=== PATIENT | male | born 1995 | race Caucasian/White ===

== ENCOUNTER 2022-03-16 00:43 | Emergency (ER) | payer OTHER ==
[2022-03-16 00:50] VITALS: BP 151/100; PULSE 92; RESP 18; TEMP 97.7; BMI 52.2
== END 2022-03-16 01:04 | disposition home or self-care (01) ==
LOC: FER 00:43
DX: S09.92XA Unspecified injury of nose, initial encounter (principal); W01.0XXA Fall on same level from slipping, tripping and stumbling without subsequent striking against object, initial encounter
CPT/HCPCS: 99281-25

== ENCOUNTER 2022-08-27 16:19 | Emergency (ER) | payer OTHER ==
[2022-08-27 16:34] VITALS: BP 130/74; PULSE 63; RESP 16; TEMP 98.3; BMI 51.5
[2022-08-27] MEDS ORDERED: METOCLOPRAMIDE HCL INJECTION 10 MG/2 ML VIAL IVPUSH ONE (16:53)
[2022-08-27] MEDS ORDERED: MECLIZINE HCL 25 MG TABLET (FP) PO ONE (16:53)
[2022-08-27] MEDS ORDERED: ACETAMINOPHEN 325 MG TABLET (FP) PO ONE (16:54)
[2022-08-27] MEDS ORDERED: METOCLOPRAMIDE HCL INJECTION 10 MG/2 ML VIAL ONE (17:14)
[2022-08-27] MEDS ORDERED: ACETAMINOPHEN 325 MG TABLET (FP) ONE (17:14)
[2022-08-27] MEDS ORDERED: MECLIZINE HCL 25 MG TABLET (FP) ONE (17:14)
[2022-08-27 17:45] LABS: HEMATOCRIT 47.9 % (35.4-49); HEMOGLOBIN 16.8 G/dL (11.7-16.9); MCHC 35.1 g/dl (32.0-35.9); MEAN CELL VOLUME 79.8 fl (80-96); MEAN PLT VOLUME 8.1 fl (7.5-11.1); PLATELET COUNT 198.8 10^3/uL (134-434); RDW 15.6 % (11.9-15.9); WHITE BLOOD COUNT 5.8 10^3/uL (4.0-10.8)
[2022-08-27 18:02] LABS: ALBUMIN 4.1 g/dl (3.4-5.0); BILIRUBIN,TOTAL 0.8 mg/dl (0.2-1); CALCIUM 9.2 mg/dl (8.5-10); CREATININE 0.8 mg/dl (0.55-1.3)
[2022-08-27 18:56] LABS: PLATELET ESTIMATE ADEQUATE
[2022-08-27 20:49] LABS: PHENCYCLIDINE,URINE NEGATIVE (NEGATIVE); URINE BARBITURATES NEGATIVE (NEGATIVE)
[2022-08-27 20:50] LABS: URINE BENZODIAZEPINES NEGATIVE (NEGATIVE)
[2022-08-27 20:51] LABS: COCAINE, UR NEGATIVE (NEGATIVE); METHADONE, UR NEGATIVE (NEGATIVE); OPIATES, URI NEGATIVE (NEGATIVE); URINE AMPHETAMINES NEGATIVE (NEGATIVE)
== END 2022-08-27 19:01 | disposition home or self-care (01) ==
LOC: FER 16:19
PROC: 3E033GC Introduction of Other Therapeutic Substance into Peripheral Vein, Percutaneous Approach (ICD-10-PCS; principal; 2022-08-27)
DX: S09.90XA Unspecified injury of head, initial encounter (principal); R42 Dizziness and giddiness; W20.8XXA Other cause of strike by thrown, projected or falling object, initial encounter
CPT/HCPCS: 36415; 70450-TC; 80053; 80307; 85027; 93005; 99285-25

== ENCOUNTER 2022-12-08 16:42 | Emergency (ER) | payer OTHER ==
[2022-12-08 17:10] VITALS: BP 128/83; PULSE 82; RESP 18; TEMP 98.6; BMI 47.9
== END 2022-12-08 17:26 | disposition home or self-care (01) ==
LOC: FER 16:42
PROC: 09C47ZZ Extirpation of Matter from Left External Auditory Canal, Via Natural or Artificial Opening (ICD-10-PCS; principal; 2022-12-08)
DX: T16.2XXA Foreign body in left ear, initial encounter (principal)
CPT/HCPCS: 99283-25